=== PATIENT | female | born 1940 | race African-American/Black ===

== ENCOUNTER 2018-09-12 13:54 | Emergency (ER) | payer OTHER ==
[2018-09-12] MEDS ORDERED: FLUORESCEIN SODIUM 0.6 MG/WRAP ONE (15:19)
[2018-09-12] MEDS ORDERED: TETRACAINE HCL 0.5% 2ML OPTH ONE (15:19)
--- NOTE | 2018-09-12 15:33 | ER ---
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 Patient has blood to right outer sclera. Denies loss of vision or pain. Transition of care: patient was not received from another setting of care. Mechanism of Injury: blunt trauma. The patient denies any loss of vision. Onset of symptoms was September 12, 2018. Risk Assessment: Do you want to hurt yourself or someone else? Patient reports no desire to harm self or others. Initial Sepsis Screen: Does the patient meet any 2 criteria? No. Patient's initial sepsis screen is negative. Does the patient have a suspected source of infection? No. Patient's initial sepsis screen is negative. Care prior to arrival: None. 14:08 Method Of Arrival: Ambulatory 14:08 Acuity: GAURAV 2 Triage Assessment: 14:11 General: Appears in no apparent distress. comfortable, Behavior is calm, cooperative, aj appropriate for age. Pain: Denies pain. EENT: Sclera/Cornea are reddened in outer aspect of conjuctiva of right eye. Neuro: Level of Consciousness is awake, alert, obeys commands, Oriented to person, place, time, situation, Appropriate for age. Respiratory: Airway is patent Respiratory effort is even, unlabored, Respiratory pattern is regular, symmetrical. Derm: Skin is intact, is healthy with good turgor, Skin is pink, warm \\T\\ dry. normal. Historical: - Allergies: 14:11 No Known Allergies; aj - Home Meds: 14:11 Xarelto 20 mg oral tab once daily [Active]; aspirin 81 mg Oral TbEC 1 tab once daily [Active]; Synthroid 88 mcg Oral tab 1 tab once daily [Active]; carvedilol 6.25 mg oral tab 1 tab 2 times per day [Active]; isradipine 2.5 mg oral cap 1 cap 2 times per day [Active]; irbesartan 75 mg oral tab 1 tab once daily [Active]; Pravachol 40 mg Oral tab 1 tab once daily [Active]; - PMHx: 14:11 Hypertension; Atrial Fib; Hypothyroidism; aj - PSHx: 14:11 Knee surgery; Appendectomy; aj - Immunization history:: Adult Immunizations up to date. - Social history:: Smoking status: Patient/guardian denies using tobacco. - Ebola Screening: : Patient negative for fever greater than or equal to 101.5 degrees Fahrenheit, and additional compatible Ebola Virus Disease symptoms Patient denies exposure to infectious person Patient denies travel to an Ebola-affected area in the 21 days before illness onset No symptoms or risks identified at this time. Screenin:50 Abuse screen: Denies threats or abuse. Denies injuries from another. Nutritional iw screening: No deficits noted. Tuberculosis screening: No symptoms or risk factors identified. Never had TB. Fall Risk None identified. Assessment: 15:50 Pain: Complains of pain in right eye Pain currently is 2 out of 10 on a pain scale. sg Quality of pain is described as throbbing, "ithcy. 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 Full function Gait is steady, Speech is normal, Facial symmetry appears normal. Cardiovascular: Capillary refill is brisk in bilateral fingers Patient's skin is warm and dry. Chest pain is denied. Respiratory: Airway is patent Respiratory effort is even, unlabored, Respiratory pattern is regular, symmetrical, Breath sounds are clear. GI: No signs and/or symptoms were reported involving the gastrointestinal system. : No signs and/or symptoms were reported regarding the genitourinary system. EENT: Eyes Sclera/Cornea are reddened in outer aspect of conjuctiva of right eye and iris of right eye Throat is clear. Derm: Skin is pink, warm \\T\\ dry. Musculoskeletal: No signs and/or symptoms reported regarding the musculoskeletal system. Vital Signs: 14:11 BP 176 / 83; Pulse 68; Resp 20; Temp 97.9; Pulse Ox 97% on R/A; Weight 103.42 kg; aj Height 5 ft. 4 in. (162.56 cm); 14:11 Body Mass Index 39.14 (103.42 kg, 162.56 cm) ED Course: 13:55 Patient arrived in ED. as 14:09 Triage completed. aj 14:11 Arm band placed on right wrist. Patient placed in waiting room, Patient notified of wait time. 14:59 Zaki Isaacs MD is Attending Physician. kdr 15:32 Ariel Rai MD is Referral Physician. kdr 15:40 Patient has correct armband on for positive identification. Bed in low position. Call sg light in reach. Side rails up X2. Pulse ox on. NIBP on. Head of bed. 15:50 No provider procedures requiring assistance completed. Patient did not have IV access sg during this emergency room visit. Administered Medications: No medications were administered Outcome: 15:33 Discharge ordered by MD. kdr 15:50 Discharged to home ambulatory, with family. iw 15:50 Condition: good 15:50 Discharge instructions given to patient, Instructed on discharge instructions, follow up and referral plans. safety practices, Demonstrated understanding of instructions, follow-up care. 15:53 Patient left the ED. iw Signatures: Don Smith RN RN Miri Haynes RN RN Zaki Isaacs MD MD [facility] Jennie Velez Irene, RN RN Gretchen Camacho, RN RN aa5 Corrections: (The following items were deleted from the chart) 16:47 14:50 Gretchen Camacho, RN is Primary Nurse. aa5 aa5
--- NOTE | 2018-09-12 15:33 | EDPHYS ---
Physician Documentation [facility] Name: Alayna Browning Age: 77 yrs Sex: Female : 1940 Arrival Date: 09/12/2018 Time: 13:55 Bed 4 Private MD: ED Physician Zaki Isaacs HPI: 09/12 15:33 This 77 yrs old Black Female presents to ER via Ambulatory with complaints of Eye kdr Injury. 15:33 The patient is experiencing redness, The patient sustained contusion, to the right eye, kdr caused by Washing machine lid dropped out of her hand and clipped her face/eye as it fell. Since then, she has noticed reddening of the scelera,. She has no pain in the eye or the surrounding orbit. She has on other c/o in the ED.. Onset: The symptoms/episode began/occurred acutely, suddenly, just prior to arrival. Duration: the symptoms are continuous. Aggravated by nothing. Alleviated by nothing. Associated signs and symptoms: Pertinent positives: None. Pertinent negatives: None. Patient does not utilize any form of vision correction. Severity of symptoms: At their worst the symptoms were mild in the emergency department the symptoms are unchanged. The patient has not experienced similar symptoms in the past. The patient has not recently seen a physician. Historical: - Allergies: 14:11 No Known Allergies; aj - Home Meds: 14:11 Xarelto 20 mg oral tab once daily [Active]; aspirin 81 mg Oral TbEC 1 tab once daily aj [Active]; Synthroid 88 mcg Oral tab 1 tab once daily [Active]; carvedilol 6.25 mg oral tab 1 tab 2 times per day [Active]; isradipine 2.5 mg oral cap 1 cap 2 times per day [Active]; irbesartan 75 mg oral tab 1 tab once daily [Active]; Pravachol 40 mg Oral tab 1 tab once daily [Active]; - PMHx: 14:11 Hypertension; Atrial Fib; Hypothyroidism; aj - PSHx: 14:11 Knee surgery; Appendectomy; aj - Immunization history:: Adult Immunizations up to date. - Social history:: Smoking status: Patient/guardian denies using tobacco. - Ebola Screening: : Patient negative for fever greater than or equal to 101.5 degrees Fahrenheit, and additional compatible Ebola Virus Disease symptoms Patient denies exposure to infectious person Patient denies travel to an Ebola-affected area in the 21 days before illness onset No symptoms or risks identified at this time. ROS: 15:33 Constitutional: Negative for fever, chills, and weight loss, ENT: Negative for injury, kdr pain, and discharge, Neck: Negative for injury, pain, and swelling, Cardiovascular: Negative for chest pain, palpitations, and edema, Respiratory: Negative for shortness of breath, cough, wheezing, and pleuritic chest pain, Abdomen/GI: Negative for abdominal pain, nausea, vomiting, diarrhea, and constipation. 15:33 Eyes: Positive for redness, Negative for blurry vision, discharge, foreign body sensation, icterus, injury or acute deformity, itching, matting, pain, photophobia, sunken appearance, swelling, tearing, vision loss, visual disturbance. Exam: 15:39 Head/Face: Normocephalic, atraumatic. kdr 15:39 Eyes: Periorbital structures: appear normal, Pupils: equal, round, and reactive to light and accomodation, Conjunctiva: injected, in the right eye, subconjunctival hemorrhage(s), seen in the right eye, Corneas: are normal, Sclera: Injected. Vital Signs: 14:11 BP 176 / 83; Pulse 68; Resp 20; Temp 97.9; Pulse Ox 97% on R/A; Weight 103.42 kg; aj Height 5 ft. 4 in. (162.56 cm); 14:11 Body Mass Index 39.14 (103.42 kg, 162.56 cm) aj MDM: 15:33 Patient medically screened. kdr 15:39 Data reviewed: vital signs, nurses notes. Counseling: I had a detailed discussion with kdr the patient and/or guardian regarding: the historical points, exam findings, and any diagnostic results supporting the discharge/admit diagnosis. Administered Medications: No medications were administered Disposition: 18 15:33 Discharged to Home. Impression: Subconjunctival Hemorrhage - traumatic. - Condition is Stable. - Discharge Instructions: Subconjunctival Hemorrhage. - Medication Reconciliation Form, Thank You Letter form. - Follow up: Private Physician; When: 2 - 3 days; Reason: Further diagnostic work-up, Recheck today's complaints, Continuance of care, Re-evaluation by your physician. Follow up: Ariel Rai MD; When: 1 - 2 days; Reason: If symptoms return, Further diagnostic work-up, Recheck today's complaints, Continuance of care, Re-evaluation by your physician. - Problem is new. - Symptoms are unchanged. Signatures: Miri Haynes RN RN Zaki Benítez MD MD kdr Sary Anaya RN RN iw Corrections: (The following items were deleted from the chart) 15:53 15:33 09/12/2018 15:33 Discharged to Home. Impression: Subconjunctival Hemorrhage - iw traumatic. Condition is Stable. Forms are Medication Reconciliation Form, Thank You Letter, Antibiotic Education, Prescription Opioid Use. Follow up: Private Physician; When: 2 - 3 days; Reason: Further diagnostic work-up, Recheck today's complaints, Continuance of care, Re-evaluation by your physician. Follow up: Ariel Rai; When: 1 - 2 days; Reason: If symptoms return, Further diagnostic work-up, Recheck today's complaints, Continuance of care, Re-evaluation by your physician. Problem is new. Symptoms are unchanged. kdr
[2018-09-12 16:59] VITALS: BP 176/83; TEMP 97.9; O2SAT 97
== END 2018-09-12 15:53 | disposition home or self-care (01) ==
LOC: ER 13:54
DX: H11.31 Conjunctival hemorrhage, right eye (principal); W22.8XXA Striking against or struck by other objects, initial encounter; Y93.89 Activity, other specified; Y92.009 Unspecified place in unspecified non-institutional (private) residence as the place of occurrence of the external cause; Z79.01 Long term (current) use of anticoagulants; Z79.82 Long term (current) use of aspirin; I10 Essential (primary) hypertension; I48.91 Unspecified atrial fibrillation; E03.9 Hypothyroidism, unspecified
CPT/HCPCS: 99283